=== PATIENT | female | born 1945 | race Caucasian/White ===

== ENCOUNTER 2019-11-29 12:26 | Inpatient (IN) ==
[~2019-11-29 12:26] MED LIST: ACETAMINOPHEN 325 MG TABLET PO PRN; ALUMINUM/MAGNES/SIMETH MAX STR 30 ML UDCUP PO PRN; ENOXAPARIN 30 MG/0.3 ML SYRINGE ONE; LIDOCAINE 1% 20 ML VIAL ONE; MAGNESIUM SULF RIDER 2 GM in PREMIX 1 EACH IV PRN; MAGNESIUM SULF RIDER 4 GM in PREMIX 1 EACH IV PRN; MIDAZOLAM 2 MG/2 ML VIAL ONE; MORPHINE 4 MG/1 ML VIAL IV PRN; ONDANSETRON 4 MG/2 ML VIAL IV PRN; POTASSIUM CHLORIDE 20 MEQ TABLET PO PRN; POTASSIUM CHLORIDE RIDER 10 MEQ in PREMIX 1 EACH IV PRN; ZALEPLON 5 MG CAPSULE PO PRN; diphenhydrAMINE CAP 25 MG CAPSULE PO PRN; fentaNYL 100 MCG/2 ML VIAL ONE; hydrALAZINE 20 MG/1 ML VIAL IV PRN
[2019-11-29] MEDS ORDERED: TIROFIBAN 5,000 MCG/100 ML PREMIX IV ONE (12:40)
[2019-11-29] MEDS ORDERED: TICAGRELOR 90 MG TABLET ONE (13:13)
[2019-11-29] MEDS ORDERED: TIROFIBAN 5,000 MCG/100 ML PREMIX IV SCH (13:40)
[2019-11-29 14:41] LABS: Basophils % 0.3 % (0.0-0.8); Eosinophils % 0.3 % (0.00-10.9); Hematocrit 37.1 VOL% (42.0-52.0); Hemoglobin 11.2 GM/DL (14.0-18.0); Immature Granulocytes % 0.4 %; Immature Granulocytes Absolute 0.04 #; Lymphocytes % 9.5 % (21.2-54.2); Mean Corpuscular HGB Conc 30.2 GM/DL (32-36); Mean Corpuscular Volume 94.9 FL (87-102); Mean Platelet Volume 8.4 FL (9.6-12.0); Monocytes % 1.9 % (1.7-12.7); Neutrophils % 87.6 % (38.7-73.9); Platelet Count 255 T/CUMM (130-400); Red Blood Count 3.91 MC/CUMM (3.8-5.5); White Blood Count 10.5 T/CUMM (4-12)
[2019-11-29] MEDS: SODIUM CHLORIDE 0.45% 1,000 ML IV SCH ×2 (14:51→20:16)
[2019-11-29] MEDS: ALBUTEROL 2.5 MG/3 ML NEB RESP TX SCH ×2 (15:03→19:34)
[2019-11-29] MEDS ORDERED: DEXTROSE 50% 25 GM/50 ML VIAL IV PRN (15:18)
[2019-11-29] MEDS ORDERED: GLUCAGON 1 MG VIAL IM PRN (15:18)
[2019-11-29 15:50] LABS: Alanine Aminotransferase 34 U/L (16-61); Albumin 3.1 G/DL (3.4-5.0); Alkaline Phosphatase 62 U/L (45-117); Aspartate Amino Transferase 71 U/L (0-37); Bilirubin,Total < 0.39 MG/DL (0.2-1.0); Blood Urea Nitrogen 15 MG/DL (7-18); Calcium 9.3 MG/DL (8.5-10.1); Estimated Glom Filtration Rate 63 ML/MIN; Glucose 131 MG/DL (74-106); Osmolality,Calculated 281.4 MOS/KG (273-304); Total Protein 6.5 G/DL (6.4-8.3)
[2019-11-29] MEDS: INSULIN REGULAR 100 UNIT/ML SUBCUT SCH ×2 (17:09→20:16)
[2019-11-29] MEDS: ROSUVASTATIN 20 MG TABLET PO SCH (20:19)
[2019-11-30] MEDS: ALBUTEROL 2.5 MG/3 ML NEB RESP TX SCH ×4 (01:40→19:14)
[2019-11-30 01:48] LABS: Bilirubin,Urine Negative (Negative); Blood, Urine Negative (Negative); Glucose,Urine (UA) Negative (Negative); Ketones,Urine Negative (Negative); Mucus,Urine Occasional /LPF (Occasional); Nitrite,Urine Negative (Negative); Protein,Urine Negative; RBC,Urine 1 /HPF (0-4); Squamous Epithelial Cell,Urine Occasional /HPF (0-10); Urine Appearance CLEAR (Clear); Urine Color Straw (Yellow); Urine Specific Gravity 1.021 (1.001-1.035); Urine Urobilinogen < 2.0 EU/DL (0.2-1.0); WBC,Urine 1 /HPF (0-6)
[2019-11-30] MEDS: SODIUM CHLORIDE 0.45% 1,000 ML IV SCH ×2 (02:20→10:32)
[2019-11-30 04:39] LABS: Basophils % 0.2 % (0.0-0.8); Eosinophils # 0.1 10*3/uL (0.0-0.87); Eosinophils % 0.6 % (0.00-10.9); Hematocrit 35.8 VOL% (42.0-52.0); Hemoglobin 10.8 GM/DL (14.0-18.0); Immature Granulocytes % 0.3 %; Immature Granulocytes Absolute 0.03 #; Lymphocytes # 1.5 10*3/uL (1.4-4.0); Lymphocytes % 16.2 % (21.2-54.2); Mean Corpuscular HGB Conc 30.2 GM/DL (32-36); Mean Corpuscular Volume 94.2 FL (87-102); Mean Platelet Volume 8.7 FL (9.6-12.0); Monocytes % 7.7 % (1.7-12.7); Platelet Count 254 T/CUMM (130-400); Red Cell Distribution Width 13.9 % (9.3-17.3)
[2019-11-30 05:19] LABS: Calcium 9.5 MG/DL (8.5-10.1); Osmolality,Calculated 278.4 MOS/KG (273-304)
[2019-11-30 05:21] LABS: Alanine Aminotransferase 32 U/L (16-61); Albumin 2.8 G/DL (3.4-5.0); Alkaline Phosphatase 55 U/L (45-117); Aspartate Amino Transferase 96 U/L (0-37); Bilirubin,Total < 0.39 MG/DL (0.2-1.0); Blood Urea Nitrogen 12 MG/DL (7-18); Calcium 9.6 MG/DL (8.5-10.1); Estimated Glom Filtration Rate 63 ML/MIN; Glucose 103 MG/DL (74-106); HDL Cholesterol 42 MG/DL (40-60); Osmolality,Calculated 278.4 MOS/KG (273-304); Risk Ratio 3.07; Total Protein 6.5 G/DL (6.4-8.3); Triglycerides 143 MG/DL (2-150); VLDL CHOLESTEROL 28.6 MG/DL
[2019-11-30] MEDS: INSULIN REGULAR 100 UNIT/ML SUBCUT SCH ×4 (07:38→20:50)
[2019-11-30] MEDS: PANTOPRAZOLE 40 MG TABLET PO SCH (08:00)
[2019-11-30] MEDS: ASPIRIN EC 81 MG TABLET PO SCH (08:00)
[2019-11-30] MEDS: ENOXAPARIN 40 MG/0.4 ML SYRINGE SUBCUT SCH (08:00)
[2019-11-30] MEDS: TICAGRELOR 90 MG TABLET PO SCH ×2 (08:00→20:49)
[2019-11-30] MEDS ORDERED: METOPROLOL SUCCINATE XL 25 MG TABLET PO SCH (09:00)
[2019-11-30 13:57] LABS: CKMB % 11.9 %
[2019-11-30 13:59] LABS: Troponin I 27.8 NG/ML (0.00-0.045)
[2019-11-30] MEDS: ROSUVASTATIN 20 MG TABLET PO SCH (20:49)
[2019-11-30] MEDS ORDERED: NORTRIPTYLINE 75 MG CAPSULE PO SCH (21:00)
[2019-11-30] MEDS ORDERED: FENOFIBRATE 145 MG TABLET PO SCH (21:00)
[2019-11-30] MEDS ORDERED: NORTRIPTYLINE 25 MG CAPSULE PO SCH (21:00)
[2019-12-01] MEDS: ALBUTEROL 2.5 MG/3 ML NEB RESP TX SCH ×3 (01:14→13:23)
[2019-12-01 06:05] LABS: Basophils % 0.4 % (0.0-0.8); Eosinophils # 0.1 10*3/uL (0.0-0.87); Eosinophils % 0.8 % (0.00-10.9); Hematocrit 33.4 VOL% (35.7-47.0); Hemoglobin 10.3 GM/DL (12.0-16.0); Immature Granulocytes % 0.5 %; Immature Granulocytes Absolute 0.04 #; Lymphocytes # 1.6 10*3/uL (1.4-4.0); Lymphocytes % 18.8 % (21.3-54.2); Mean Corpuscular HGB Conc 30.8 GM/DL (32-36); Mean Corpuscular Volume 91.3 FL (87-102); Mean Platelet Volume 9.1 FL (9.6-12.0); Monocytes % 6.7 % (1.7-12.7); Neutrophils % 72.8 % (38.7-73.9); Platelet Count 236 T/CUMM (130-400); Red Blood Count 3.66 MC/CUMM (3.8-5.5); White Blood Count 8.5 T/CUMM (4-12)
[2019-12-01 06:21] LABS: Calcium 9.4 MG/DL (8.5-10.1); Osmolality,Calculated 279.4 MOS/KG (273-304)
[2019-12-01 06:30] LABS: Albumin 2.7 G/DL (3.4-5.0); Bilirubin,Total 1.4 MG/DL (0.2-1.0); Calcium 9.5 MG/DL (8.5-10.1); Osmolality,Calculated 280.4 MOS/KG (273-304); Total Protein 6.5 G/DL (6.4-8.3)
[2019-12-01] MEDS ORDERED: amLODIPine 10 MG TABLET PO SCH ×2 (09:00)
[2019-12-01] MEDS ORDERED: LOSARTAN 25 MG TABLET PO SCH (09:00)
[2019-12-01] MEDS ORDERED: METOPROLOL SUCCINATE XL 50 MG TABLET PO SCH ×3 (09:00)
[2019-12-01] MEDS ORDERED: POTASSIUM CHLORIDE 20 MEQ TABLET PO SCH (09:00)
[2019-12-01] MEDS: PANTOPRAZOLE 40 MG TABLET PO SCH (09:40)
[2019-12-01] MEDS: ASPIRIN EC 81 MG TABLET PO SCH (09:41)
[2019-12-01] MEDS: TICAGRELOR 90 MG TABLET PO SCH (09:41)
[2019-12-01] MEDS: ENOXAPARIN 40 MG/0.4 ML SYRINGE SUBCUT SCH (09:41)
[2019-12-01] MEDS: INSULIN REGULAR 100 UNIT/ML SUBCUT SCH ×2 (09:42→11:13)
[2019-12-01 12:01] VITALS: BP 119/64
== END 2019-12-01 15:30 | disposition home or self-care (01) | DRG 247 ==
LOC: N.CL 12:26 → N.SDSINP 13:37 → N.ICU 13:37 → SUPCPDRO 13:37 → N.SDSINP 13:38 → N.TELEN 11-30 12:35 → N.SDSINP 11-30 12:35 → UNDODISIN 12-01 15:30 → UNDODEPSDC 12-03 13:56 → UNDODISIN 12-05 10:27 → UNDODEPSDC 12-06 08:09
PROVIDERS: ADMIT Internal Medicine Cardiovascular Disease; ATTEND Internal Medicine Cardiovascular Disease
PROC: CLCCHCL (ICD-10-PCS; 2019-11-29 12:15)

== ENCOUNTER 2019-12-24 17:11 | Inpatient (IN) ==
[2019-12-24 18:12] LABS: Basophils # 0.1 10*3/uL (0.0-0.2); Basophils % 0.5 % (0.0-0.8); Eosinophils # 0.1 10*3/uL (0.0-0.87); Eosinophils % 0.8 % (0.00-10.9); Hematocrit 29.7 VOL% (35.7-47.0); Hemoglobin 9.1 GM/DL (12.0-16.0); Immature Granulocytes % 0.6 %; Immature Granulocytes Absolute 0.09 #; Lymphocytes # 1.8 10*3/uL (1.4-4.0); Lymphocytes % 13.1 % (21.3-54.2); Mean Corpuscular HGB Conc 30.6 GM/DL (32-36); Mean Corpuscular Volume 92.8 FL (87-102); Mean Platelet Volume 9.4 FL (9.6-12.0); Monocytes % 4.4 % (1.7-12.7); Neutrophils % 80.6 % (38.7-73.9); Platelet Count 274 T/CUMM (130-400); Red Cell Distribution Width 13.8 % (9.3-17.3); White Blood Count 13.9 T/CUMM (4-12)
[2019-12-24] MEDS ORDERED: ONDANSETRON 4 MG/2 ML VIAL IV STA ×2 (18:15→19:20)
[2019-12-24] MEDS ORDERED: SODIUM CHLORIDE 0.9% 500 ML IV STA ×2 (18:17→19:50)
[2019-12-24 18:22] LABS: INR 1.2; PT Patient Result 12.8 SECS (9.8-11.9); Partial Thromboplastin Time 25.1 SECS (23.9-33.8)
[2019-12-24 18:29] LABS: Albumin 2.6 G/DL (3.4-5.0); Bilirubin,Total 0.5 MG/DL (0.2-1.0); Calcium 10.3 MG/DL (8.5-10.1); Osmolality,Calculated 288.5 MOS/KG (273-304); Total Protein 6.3 G/DL (6.4-8.3); Troponin I < 0.015 NG/ML (0.00-0.045)
[2019-12-24] MEDS ORDERED: SODIUM CHLORIDE 0.9% 1,000 ML IV STA (19:00)
[2019-12-24] MEDS ORDERED: DOPamine 800 MG/250 ML PREMIX IV PRN (22:40)
[2019-12-24] MEDS ORDERED: ONDANSETRON 4 MG/2 ML VIAL IV PRN (22:52)
[2019-12-24] MEDS ORDERED: ALBUTEROL 2.5 MG/3 ML NEB RESP TX PRN (22:52)
[2019-12-24] MEDS ORDERED: CALCIUM CARBONATE CHEW 500 MG TABLET PO PRN (22:52)
[2019-12-24] MEDS ORDERED: PANTOPRAZOLE 40 MG VIAL IV SCH (23:00)
[2019-12-24] MEDS ORDERED: ENOXAPARIN 30 MG/0.3 ML SYRINGE SUBCUT SCH (23:00)
[2019-12-24] MEDS: LACTATED RINGERS 1,000 ML IV SCH (23:32)
[2019-12-24 23:34] LABS: Apearance,Urine Slightly Hazy (Clear); Bacteria,Urine Occasional /HPF (Few); Bilirubin,Urine Negative (Negative); Blood, Urine Negative (Negative); Glucose,Urine (UA) Negative (Negative); Hyaline Casts,Urine 5 /LPF (0-3); Ketones,Urine 5 mg/dL (Negative); Mucus,Urine Occasional /LPF (Occasional); Nitrite,Urine Negative (Negative); Protein,Urine Negative; RBC,Urine 2 /HPF (0-4); Renal Epithelial Cells,Urine Occasional /HPF (<1); Squamous Epithelial Cell,Urine Occasional /HPF (0-10); Urine Color Yellow (Yellow); Urine Specific Gravity 1.014 (1.001-1.035); Urine Urobilinogen < 2.0 EU/DL (0.2-1.0); WBC,Urine 7 /HPF (0-6)
[2019-12-24] MEDS: ALBUTEROL 2.5 MG/3 ML NEB RESP TX SCH (23:39)
[2019-12-25] MEDS ORDERED: SUCCINYLCHOLINE 200 MG/10 ML VIAL ONE (00:52)
[2019-12-25] MEDS ORDERED: ETOMIDATE 20 MG/10 ML VIAL IV ONE ×2 (00:52→01:30)
[2019-12-25] MEDS: DIGOXIN 0.5 MG/2 ML AMP IV ONE (00:55)
[2019-12-25] MEDS ORDERED: LACTATED RINGERS 500 ML IV ONE (01:01)
[2019-12-25] MEDS ORDERED: CALCIUM CHLORIDE 1,000 MG/10 ML SYRINGE IV ONE ×2 (01:02)
[2019-12-25] MEDS ORDERED: NOREPINEPHRINE 4 MG/4 ML VIAL IV ONE (01:14)
[2019-12-25] MEDS ORDERED: MIDAZOLAM 10 MG/2 ML VIAL ONE (01:17)
[2019-12-25] MEDS: NOREPINEPHRINE 8 MG in SODIUM CHLORIDE 0.9% 242 ML IV PRN ×4 (01:19→13:17)
[2019-12-25] MEDS ORDERED: SUCCINYLCHOLINE 200 MG/10 ML VIAL IV ONE (01:30)
[2019-12-25] MEDS ORDERED: MIDAZOLAM 2 MG/2 ML VIAL IV ONE ×2 (01:31→03:32)
[2019-12-25] MEDS: MIDAZOLAM 100 MG in SODIUM CHLORIDE 0.9% 80 ML IV PRN (01:36)
[2019-12-25 01:46] LABS: ABG Base Excess -9.2 MMOL/L (-2.5-2.5); ABG HCO3 16.7 MMOL/L (20-26); ABG PCO2 51.9 MM HG (35-48); ABG PO2 52.6 MM HG (80-95); ABG TCO2 18.6 MMOL/L (23-27); Allen Test Positive; Pt O2 Delivery Device Ventilator
[2019-12-25 01:49] LABS: ABG PH 7.169 (7.35-7.45)
[2019-12-25 02:29] LABS: ABG Base Excess -9.9 MMOL/L (-2.5-2.5); ABG HCO3 16.4 MMOL/L (20-26); ABG Oxygen Saturation 99.7 % (95-100); ABG PCO2 43.1 MM HG (35-48); ABG PH 7.211 (7.35-7.45); ABG TCO2 16.8 MMOL/L (23-27)
[2019-12-25] MEDS: ALBUTEROL 2.5 MG/3 ML NEB RESP TX SCH ×3 (02:58→11:11)
[2019-12-25] MEDS: fentaNYL INJ 1,250 MCG in SODIUM CHLORIDE 0.9% 225 ML IV PRN (03:50)
[2019-12-25 03:59] LABS: Apearance,Urine Slightly Hazy (Clear); Bacteria,Urine Occasional /HPF (Few); Bilirubin,Urine Negative (Negative); Blood, Urine Negative (Negative); Glucose,Urine (UA) Negative (Negative); Hyaline Casts,Urine 5 /LPF (0-3); Ketones,Urine 5 mg/dL (Negative); Mucus,Urine Occasional /LPF (Occasional); Nitrite,Urine Negative (Negative); Protein,Urine Negative; RBC,Urine 1 /HPF (0-4); Squamous Epithelial Cell,Urine Occasional /HPF (0-10); Urine Color Yellow (Yellow); Urine Specific Gravity 1.014 (1.001-1.035); Urine Urobilinogen < 2.0 EU/DL (0.2-1.0); WBC,Urine 3 /HPF (0-6)
[2019-12-25 03:59] LABS: Basophils % 0.2 % (0.0-0.8); Eosinophils % 0.1 % (0.00-10.9); Hematocrit 21.1 VOL% (35.7-47.0); Immature Granulocytes % 0.8 %; Immature Granulocytes Absolute 0.12 #; Lymphocytes # 1.4 10*3/uL (1.4-4.0); Lymphocytes % 9.6 % (21.3-54.2); Mean Corpuscular HGB Conc 29.4 GM/DL (32-36); Mean Corpuscular Volume 97.7 FL (87-102); Mean Platelet Volume 9.9 FL (9.6-12.0); Monocytes % 3.3 % (1.7-12.7); Platelet Count 264 T/CUMM (130-400); Red Blood Count 2.16 MC/CUMM (3.8-5.5); Red Cell Distribution Width 13.7 % (9.3-17.3); White Blood Count 14.4 T/CUMM (4-12)
[2019-12-25 04:04] LABS: Hemoglobin 6.2 GM/DL (12.0-16.0)
[2019-12-25 04:30] LABS: Albumin 2.2 G/DL (3.4-5.0); Bilirubin,Total 0.9 MG/DL (0.2-1.0); Calcium 10.3 MG/DL (8.5-10.1); Osmolality,Calculated 302.4 MOS/KG (273-304); Total Protein 5.1 G/DL (6.4-8.3); Troponin I 0.034 NG/ML (0.00-0.045)
[2019-12-25] MEDS: LACTATED RINGERS 1,000 ML IV SCH ×5 (06:34→20:08)
[2019-12-25] MEDS ORDERED: GLUCAGON 1 MG VIAL IM PRN (07:35)
[2019-12-25] MEDS ORDERED: DEXTROSE 50% 25 GM/50 ML VIAL IV PRN (07:35)
[2019-12-25] MEDS ORDERED: MAGNESIUM SULF RIDER 4 GM in PREMIX 1 EACH IV ONE (07:36)
[2019-12-25] MEDS: ASPIRIN CHEW 81 MG TABLET PO SCH (10:15)
[2019-12-25] MEDS: PANTOPRAZOLE 40 MG VIAL IV SCH ×2 (10:19→20:35)
[2019-12-25] MEDS: INSULIN LISPRO 100 UNIT/ML SUBCUT SCH ×2 (12:27→17:35)
[2019-12-25 16:45] LABS: Hematocrit 27.9 VOL% (35.7-47.0); Hemoglobin 8.8 GM/DL (12.0-16.0)
[2019-12-25] MEDS: ROSUVASTATIN 20 MG TABLET PO SCH (20:35)
[2019-12-26] MEDS: INSULIN LISPRO 100 UNIT/ML SUBCUT SCH ×5 (00:21→17:14)
[2019-12-26] MEDS: LACTATED RINGERS 1,000 ML IV SCH ×6 (01:58→22:10)
[2019-12-26] MEDS: MIDAZOLAM 100 MG in SODIUM CHLORIDE 0.9% 80 ML IV PRN (02:43)
[2019-12-26 03:01] LABS: ABG Base Excess -2.1 MMOL/L (-2.5-2.5); ABG HCO3 22.6 MMOL/L (20-26); ABG Oxygen Saturation 97.5 % (95-100); ABG PH 7.391 (7.35-7.45); ABG PO2 91.3 MM HG (80-95); ABG TCO2 21.1 MMOL/L (23-27); Allen Test Positive; Pt O2 Delivery Device Ventilator
[2019-12-26] MEDS: NOREPINEPHRINE 8 MG in SODIUM CHLORIDE 0.9% 242 ML IV PRN (03:16)
[2019-12-26 05:00] LABS: Basophils % 0.1 % (0.0-0.8); Hematocrit 22.9 VOL% (35.7-47.0); Hemoglobin 7.2 GM/DL (12.0-16.0); Immature Granulocytes % 0.5 %; Immature Granulocytes Absolute 0.09 #; Lymphocytes # 1.3 10*3/uL (1.4-4.0); Lymphocytes % 7.4 % (21.3-54.2); Mean Corpuscular HGB Conc 31.4 GM/DL (32-36); Mean Corpuscular Volume 89.8 FL (87-102); Mean Platelet Volume 9.5 FL (9.6-12.0); Monocytes % 3.7 % (1.7-12.7); Neutrophils % 88.3 % (38.7-73.9); Platelet Count 173 T/CUMM (130-400); Red Blood Count 2.55 MC/CUMM (3.8-5.5); Red Cell Distribution Width 14.8 % (9.3-17.3)
[2019-12-26 05:11] LABS: Alanine Aminotransferase 102 U/L (13-56); Albumin 1.8 G/DL (3.4-5.0); Alkaline Phosphatase 41 U/L (45-117); Aspartate Amino Transferase 127 U/L (0-37); Bilirubin,Total < 0.39 MG/DL (0.2-1.0); Blood Urea Nitrogen 63 MG/DL (7-18); Estimated Glom Filtration Rate 42 ML/MIN; Glucose 158 MG/DL (74-106); Osmolality,Calculated 312.4 MOS/KG (273-304); Total Protein 4.5 G/DL (6.4-8.3)
[2019-12-26] MEDS ORDERED: SODIUM CHLORIDE 0.9% 1,000 ML IV PRN (07:59)
[2019-12-26] MEDS ORDERED: LACTATED RINGERS 1,000 ML IV SCH (08:00)
[2019-12-26 08:37] LABS: Hematocrit 23.2 VOL% (35.7-47.0); Hemoglobin 7.3 GM/DL (12.0-16.0)
[2019-12-26] MEDS: fentaNYL INJ 1,250 MCG in SODIUM CHLORIDE 0.9% 225 ML IV PRN (08:40)
[2019-12-26] MEDS: PANTOPRAZOLE 40 MG VIAL IV SCH ×2 (10:16→20:37)
[2019-12-26] MEDS: ASPIRIN CHEW 81 MG TABLET PO SCH (11:25)
[2019-12-26 13:28] LABS: Hematocrit 24.6 VOL% (35.7-47.0); Hemoglobin 7.8 GM/DL (12.0-16.0)
[2019-12-26 16:58] LABS: Hematocrit 22.7 VOL% (35.7-47.0); Hemoglobin 7.4 GM/DL (12.0-16.0)
[2019-12-26] MEDS: ROSUVASTATIN 20 MG TABLET PO SCH (20:35)
[2019-12-26] MEDS ORDERED: diphenhydrAMINE 50 MG/1 ML VIAL IV ONE (21:36)
[2019-12-26] MEDS ORDERED: methylPREDNISolone SOD SUC 125 MG/2 ML VIAL IV ONE (21:36)
[2019-12-26] MEDS ORDERED: FAMOTIDINE 20 MG/2 ML VIAL IV ONE (21:37)
[2019-12-26 21:57] LABS: Apearance,Urine CLEAR (Clear); Bilirubin,Urine Negative (Negative); Blood, Urine Small mg/dL (Negative); Glucose,Urine (UA) Negative (Negative); Hyaline Casts,Urine 1 /LPF (0-3); Ketones,Urine Negative (Negative); Mucus,Urine Occasional /LPF (Occasional); Nitrite,Urine Negative (Negative); Protein,Urine Negative; RBC,Urine 1 /HPF (0-4); Squamous Epithelial Cell,Urine Occasional /HPF (0-10); Urine Color Yellow (Yellow); Urine Specific Gravity 1.016 (1.001-1.035); Urine Urobilinogen < 2.0 EU/DL (0.2-1.0); WBC,Urine 4 /HPF (0-6)
[2019-12-27 00:07] LABS: Hematocrit 23.7 VOL% (35.7-47.0); Hemoglobin 7.6 GM/DL (12.0-16.0)
[2019-12-27] MEDS: INSULIN LISPRO 100 UNIT/ML SUBCUT SCH ×4 (00:24→17:37)
[2019-12-27] MEDS: MIDAZOLAM 100 MG in SODIUM CHLORIDE 0.9% 80 ML IV PRN (00:25)
[2019-12-27] MEDS: LACTATED RINGERS 1,000 ML IV SCH (02:57)
[2019-12-27 03:23] LABS: ABG Base Excess 0.2 MMOL/L (-2.5-2.5); ABG HCO3 24.6 MMOL/L (20-26); ABG PCO2 35.9 MM HG (35-48); ABG PH 7.436 (7.35-7.45); ABG PO2 83.7 MM HG (80-95); ABG TCO2 22.4 MMOL/L (23-27)
[2019-12-27 03:59] LABS: Basophils % 0.1 % (0.0-0.8); Hematocrit 26.1 VOL% (35.7-47.0); Hemoglobin 8.4 GM/DL (12.0-16.0); Immature Granulocytes % 1.4 %; Immature Granulocytes Absolute 0.15 #; Lymphocytes # 0.8 10*3/uL (1.4-4.0); Lymphocytes % 7.6 % (21.3-54.2); Mean Corpuscular HGB Conc 32.2 GM/DL (32-36); Mean Corpuscular Volume 90.3 FL (87-102); Mean Platelet Volume 9.4 FL (9.6-12.0); Monocytes % 1.4 % (1.7-12.7); NRBC # 0.02 10*3/uL; Neutrophils % 89.5 % (38.7-73.9); Platelet Count 122 T/CUMM (130-400); Red Blood Count 2.89 MC/CUMM (3.8-5.5); Red Cell Distribution Width 15.2 % (9.3-17.3); White Blood Count 10.4 T/CUMM (4-12)
[2019-12-27 04:20] LABS: Calcium 9.2 MG/DL (8.5-10.1)
[2019-12-27] MEDS ORDERED: LACTATED RINGERS 1,000 ML IV SCH (08:00)
[2019-12-27] MEDS: PANTOPRAZOLE 40 MG VIAL IV SCH ×2 (08:10→21:12)
[2019-12-27] MEDS: SODIUM CHLORIDE 0.45% 1,000 ML IV SCH ×2 (08:10→17:37)
[2019-12-27] MEDS: ASPIRIN CHEW 81 MG TABLET PO SCH (08:10)
[2019-12-27] MEDS ORDERED: propofoL 200 MG/20 ML VIAL IV ONE ×2 (09:00→13:14)
[2019-12-27] MEDS: fentaNYL INJ 1,250 MCG in SODIUM CHLORIDE 0.9% 225 ML IV PRN (11:30)
[2019-12-27] MEDS: LEVOFLOXACIN INJ 500 MG in PREMIX 1 EACH IV SCH (18:02)
[2019-12-27] MEDS: ROSUVASTATIN 20 MG TABLET PO SCH (21:11)
[2019-12-28] MEDS: INSULIN LISPRO 100 UNIT/ML SUBCUT SCH ×5 (02:45→23:55)
[2019-12-28] MEDS: SODIUM CHLORIDE 0.45% 1,000 ML IV SCH ×5 (03:30→23:55)
[2019-12-28 04:38] LABS: ABG Base Excess -1.9 MMOL/L (-2.5-2.5); ABG HCO3 21.9 MMOL/L (20-26); ABG Oxygen Saturation 96.1 % (95-100); ABG PCO2 33.4 MM HG (35-48); ABG PH 7.435 (7.35-7.45); ABG PO2 89.6 MM HG (80-95); ABG TCO2 22.9 MMOL/L (23-27); Allen Test Positive; Pt O2 Delivery Device Ventilator
[2019-12-28 04:58] LABS: Hematocrit 25.7 VOL% (35.7-47.0); Hemoglobin 8.2 GM/DL (12.0-16.0); Immature Granulocytes % 0.5 %; Immature Granulocytes Absolute 0.04 #; Lymphocytes # 1.1 10*3/uL (1.4-4.0); Lymphocytes % 12.9 % (21.3-54.2); Mean Corpuscular HGB Conc 31.9 GM/DL (32-36); Mean Corpuscular Volume 91.5 FL (87-102); Mean Platelet Volume 9.3 FL (9.6-12.0); Monocytes % 6.6 % (1.7-12.7); NRBC # 0.02 10*3/uL; Platelet Count 127 T/CUMM (130-400); Red Blood Count 2.81 MC/CUMM (3.8-5.5); Red Cell Distribution Width 15.2 % (9.3-17.3); White Blood Count 8.8 T/CUMM (4-12)
[2019-12-28 05:14] LABS: Calcium 9.1 MG/DL (8.5-10.1); Osmolality,Calculated 304.1 MOS/KG (273-304)
[2019-12-28] MEDS: MIDAZOLAM 100 MG in SODIUM CHLORIDE 0.9% 80 ML IV PRN (06:37)
[2019-12-28] MEDS: ASPIRIN CHEW 81 MG TABLET PO SCH (09:16)
[2019-12-28] MEDS: PANTOPRAZOLE 40 MG VIAL IV SCH ×2 (09:25→20:23)
[2019-12-28] MEDS: fentaNYL INJ 1,250 MCG in SODIUM CHLORIDE 0.9% 225 ML IV PRN (12:40)
[2019-12-28] MEDS: LEVOFLOXACIN INJ 500 MG in PREMIX 1 EACH IV SCH (18:31)
[2019-12-28] MEDS: ROSUVASTATIN 20 MG TABLET PO SCH (20:23)
[2019-12-29] MEDS: fentaNYL INJ 1,250 MCG in SODIUM CHLORIDE 0.9% 225 ML IV PRN ×3 (01:53→18:54)
[2019-12-29 03:45] LABS: Basophils % 0.2 % (0.0-0.8); Eosinophils # 0.2 10*3/uL (0.0-0.87); Eosinophils % 2.7 % (0.00-10.9); Hematocrit 24.9 VOL% (35.7-47.0); Hemoglobin 7.8 GM/DL (12.0-16.0); Immature Granulocytes % 0.5 %; Immature Granulocytes Absolute 0.03 #; Lymphocytes # 1.4 10*3/uL (1.4-4.0); Lymphocytes % 21.8 % (21.3-54.2); Mean Corpuscular HGB Conc 31.3 GM/DL (32-36); Mean Corpuscular Volume 92.6 FL (87-102); Mean Platelet Volume 8.8 FL (9.6-12.0); Monocytes % 9.1 % (1.7-12.7); Neutrophils % 65.7 % (38.7-73.9); Platelet Count 114 T/CUMM (130-400); Red Blood Count 2.69 MC/CUMM (3.8-5.5); Red Cell Distribution Width 15.3 % (9.3-17.3); White Blood Count 6.2 T/CUMM (4-12)
[2019-12-29 03:58] LABS: Calcium 8.8 MG/DL (8.5-10.1); Osmolality,Calculated 295.4 MOS/KG (273-304)
[2019-12-29 04:55] LABS: ABG Base Excess -3.3 MMOL/L (-2.5-2.5); ABG HCO3 21.7 MMOL/L (20-26); ABG Oxygen Saturation 99.3 % (95-100); ABG PCO2 36.3 MM HG (35-48); ABG PH 7.379 (7.35-7.45); ABG TCO2 20.1 MMOL/L (23-27); Allen Test Positive; Pt O2 Delivery Device Ventilator
[2019-12-29] MEDS: INSULIN LISPRO 100 UNIT/ML SUBCUT SCH ×3 (06:36→18:10)
[2019-12-29] MEDS ORDERED: FUROSEMIDE 40 MG/4 ML VIAL IV ONE (08:07)
[2019-12-29] MEDS: ASPIRIN CHEW 81 MG TABLET PO SCH (09:22)
[2019-12-29] MEDS: PANTOPRAZOLE 40 MG VIAL IV SCH ×2 (09:23→20:45)
[2019-12-29] MEDS: SODIUM CHLORIDE 0.45% 1,000 ML IV SCH ×2 (09:32→20:21)
[2019-12-29] MEDS: METOPROLOL TARTRATE 5 MG/5 ML VIAL IV SCH ×3 (10:21→10:43)
[2019-12-29] MEDS ORDERED: METOPROLOL SUCCINATE XL 100 MG TABLET PO SCH (12:00)
[2019-12-29] MEDS ORDERED: METOPROLOL TARTRATE 50 MG TABLET PO ONE (12:36)
[2019-12-29] MEDS: LOSARTAN 25 MG TABLET PO SCH (13:15)
[2019-12-29] MEDS: amLODIPine 10 MG TABLET PO SCH (13:15)
[2019-12-29] MEDS: MIDAZOLAM 100 MG in SODIUM CHLORIDE 0.9% 80 ML IV PRN (16:00)
[2019-12-29] MEDS: FUROSEMIDE 20 MG/2 ML VIAL IV SCH (16:58)
[2019-12-29] MEDS: LEVOFLOXACIN INJ 500 MG in PREMIX 1 EACH IV SCH (17:01)
[2019-12-29] MEDS: ROSUVASTATIN 20 MG TABLET PO SCH (20:45)
[2019-12-29] MEDS: METOPROLOL TARTRATE 50 MG TABLET NG SCH (20:45)
[2019-12-30] MEDS: INSULIN LISPRO 100 UNIT/ML SUBCUT SCH ×5 (00:07→23:56)
[2019-12-30] MEDS: fentaNYL INJ 1,250 MCG in SODIUM CHLORIDE 0.9% 225 ML IV PRN ×2 (03:25→10:46)
[2019-12-30 04:06] LABS: Basophils % 0.3 % (0.0-0.8); Eosinophils # 0.4 10*3/uL (0.0-0.87); Eosinophils % 5.8 % (0.00-10.9); Hematocrit 25.5 VOL% (35.7-47.0); Hemoglobin 7.9 GM/DL (12.0-16.0); Immature Granulocytes % 0.7 %; Immature Granulocytes Absolute 0.05 #; Lymphocytes # 1.5 10*3/uL (1.4-4.0); Lymphocytes % 19.7 % (21.3-54.2); Mean Corpuscular Volume 92.1 FL (87-102); Mean Platelet Volume 9.2 FL (9.6-12.0); Monocytes % 8.5 % (1.7-12.7); Platelet Count 126 T/CUMM (130-400); Red Blood Count 2.77 MC/CUMM (3.8-5.5); White Blood Count 7.4 T/CUMM (4-12)
[2019-12-30 04:27] LABS: ABG Base Excess -4.5 MMOL/L (-2.5-2.5); ABG PCO2 34.5 MM HG (35-48); ABG PH 7.381 (7.35-7.45); ABG TCO2 21.1 MMOL/L (23-27); Allen Test Positive; Pt O2 Delivery Device Ventilator
[2019-12-30 05:10] LABS: Calcium 8.6 MG/DL (8.5-10.1); Osmolality,Calculated 286.8 MOS/KG (273-304)
[2019-12-30] MEDS: SODIUM CHLORIDE 0.45% 1,000 ML IV SCH ×3 (06:20→20:38)
[2019-12-30] MEDS: PANTOPRAZOLE 40 MG VIAL IV SCH ×2 (08:15→20:39)
[2019-12-30] MEDS: METOPROLOL TARTRATE 50 MG TABLET NG SCH ×2 (08:15→20:39)
[2019-12-30] MEDS: amLODIPine 10 MG TABLET PO SCH (08:15)
[2019-12-30] MEDS: ASPIRIN CHEW 81 MG TABLET PO SCH (08:15)
[2019-12-30] MEDS: LOSARTAN 25 MG TABLET PO SCH (08:15)
[2019-12-30] MEDS: FUROSEMIDE 20 MG/2 ML VIAL IV SCH ×2 (08:21→17:25)
[2019-12-30] MEDS: POTASSIUM CHLORIDE RIDER 20 MEQ in PREMIX 1 EACH IV SCH ×2 (11:34→14:05)
[2019-12-30] MEDS: LEVOFLOXACIN INJ 500 MG in PREMIX 1 EACH IV SCH (17:25)
[2019-12-30] MEDS: DEXMEDETOMIDINE 400 MCG in SODIUM CHLORIDE 0.9% 96 ML IV PRN (17:31)
[2019-12-30] MEDS: ROSUVASTATIN 20 MG TABLET PO SCH (20:39)
[2019-12-31] MEDS: DEXMEDETOMIDINE 400 MCG in SODIUM CHLORIDE 0.9% 96 ML IV PRN ×4 (00:45→23:01)
[2019-12-31] MEDS: fentaNYL INJ 1,250 MCG in SODIUM CHLORIDE 0.9% 225 ML IV PRN ×2 (02:16→15:00)
[2019-12-31 03:34] LABS: ABG Base Excess -1.5 MMOL/L (-2.5-2.5); ABG HCO3 23.1 MMOL/L (20-26); ABG Oxygen Saturation 99.3 % (95-100); ABG PCO2 39.9 MM HG (35-48); ABG PH 7.377 (7.35-7.45); ABG TCO2 21.5 MMOL/L (23-27); Allen Test Positive; Pt O2 Delivery Device Ventilator
[2019-12-31 04:33] LABS: Basophils % 0.1 % (0.0-0.8); Eosinophils # 0.4 10*3/uL (0.0-0.87); Eosinophils % 4.2 % (0.00-10.9); Hematocrit 24.9 VOL% (35.7-47.0); Immature Granulocytes % 0.8 %; Immature Granulocytes Absolute 0.07 #; Lymphocytes % 12.4 % (21.3-54.2); Mean Corpuscular HGB Conc 32.1 GM/DL (32-36); Mean Corpuscular Volume 89.9 FL (87-102); Neutrophils % 74.5 % (38.7-73.9); Platelet Count 153 T/CUMM (130-400); Red Blood Count 2.77 MC/CUMM (3.8-5.5); Red Cell Distribution Width 14.2 % (9.3-17.3); White Blood Count 8.3 T/CUMM (4-12)
[2019-12-31 04:48] LABS: Calcium 8.8 MG/DL (8.5-10.1); Osmolality,Calculated 285.1 MOS/KG (273-304)
[2019-12-31 04:52] LABS: Prealbumin 14.3 MG/DL (20-40)
[2019-12-31] MEDS: INSULIN LISPRO 100 UNIT/ML SUBCUT SCH ×4 (06:01→23:53)
[2019-12-31] MEDS: SODIUM CHLORIDE 0.45% 1,000 ML IV SCH (06:30)
[2019-12-31] MEDS ORDERED: MAGNESIUM SULF RIDER 2 GM in PREMIX 1 EACH IV ONE (08:10)
[2019-12-31] MEDS: ASPIRIN CHEW 81 MG TABLET PO SCH (08:11)
[2019-12-31] MEDS: MULTIVITAMIN LIQUID (CENTRUM) 60 ML BOTTLE PO SCH (08:11)
[2019-12-31] MEDS: PANTOPRAZOLE 40 MG VIAL IV SCH ×2 (08:11→20:47)
[2019-12-31] MEDS: FUROSEMIDE 20 MG/2 ML VIAL IV SCH (08:14)
[2019-12-31] MEDS: amLODIPine 10 MG TABLET PO SCH (08:24)
[2019-12-31] MEDS: METOPROLOL TARTRATE 50 MG TABLET NG SCH ×2 (08:24→20:48)
[2019-12-31] MEDS: LOSARTAN 25 MG TABLET PO SCH (08:24)
[2019-12-31] MEDS ORDERED: FUROSEMIDE 40 MG/4 ML VIAL IV ONE (08:27)
[2019-12-31] MEDS: TICAGRELOR 90 MG TABLET PO SCH ×2 (09:12→20:48)
[2019-12-31] MEDS ORDERED: ALPRAZolam 0.5 MG TABLET PO PRN (10:05)
[2019-12-31] MEDS: ALPRAZolam 0.5 MG TABLET PER TUBE PRN ×2 (13:03→20:49)
[2019-12-31] MEDS ORDERED: POTASSIUM CHLORIDE RIDER 20 MEQ in PREMIX 1 EACH IV ONE (13:30)
[2019-12-31] MEDS: LEVOFLOXACIN INJ 500 MG in PREMIX 1 EACH IV SCH (18:52)
[2019-12-31] MEDS: ROSUVASTATIN 20 MG TABLET PO SCH (20:48)
[2019-12-31] MEDS ORDERED: NOREPINEPHRINE 4 MG/4 ML VIAL IV ONE (22:31)
[2020-01-01] MEDS: fentaNYL INJ 1,250 MCG in SODIUM CHLORIDE 0.9% 225 ML IV PRN ×2 (04:48→16:01)
[2020-01-01 04:55] LABS: ABG Base Excess 1.8 MMOL/L (-2.5-2.5); ABG Oxygen Saturation 99.2 % (95-100); ABG PCO2 44.2 MM HG (35-48); ABG PH 7.393 (7.35-7.45); ABG TCO2 25.1 MMOL/L (23-27)
[2020-01-01] MEDS: DEXMEDETOMIDINE 400 MCG in SODIUM CHLORIDE 0.9% 96 ML IV PRN (05:09)
[2020-01-01 05:38] LABS: Basophils % 0.1 % (0.0-0.8); Eosinophils # 0.4 10*3/uL (0.0-0.87); Eosinophils % 4.2 % (0.00-10.9); Hematocrit 22.8 VOL% (35.7-47.0); Hemoglobin 7.2 GM/DL (12.0-16.0); Immature Granulocytes % 0.8 %; Immature Granulocytes Absolute 0.07 #; Lymphocytes # 0.8 10*3/uL (1.4-4.0); Lymphocytes % 9.3 % (21.3-54.2); Mean Corpuscular HGB Conc 31.6 GM/DL (32-36); Mean Corpuscular Volume 89.4 FL (87-102); Mean Platelet Volume 9.5 FL (9.6-12.0); Monocytes % 9.6 % (1.7-12.7); Platelet Count 193 T/CUMM (130-400); Red Blood Count 2.55 MC/CUMM (3.8-5.5); Red Cell Distribution Width 13.7 % (9.3-17.3); White Blood Count 8.6 T/CUMM (4-12)
[2020-01-01 05:50] LABS: Calcium 9.1 MG/DL (8.5-10.1); Osmolality,Calculated 284.3 MOS/KG (273-304)
[2020-01-01] MEDS: INSULIN LISPRO 100 UNIT/ML SUBCUT SCH ×3 (05:50→17:20)
[2020-01-01] MEDS: ASPIRIN CHEW 81 MG TABLET PO SCH (09:18)
[2020-01-01] MEDS: amLODIPine 10 MG TABLET PO SCH (09:18)
[2020-01-01] MEDS: ALPRAZolam 0.5 MG TABLET PER TUBE PRN (09:18)
[2020-01-01] MEDS: PANTOPRAZOLE 40 MG VIAL IV SCH ×2 (09:18→20:19)
[2020-01-01] MEDS: TICAGRELOR 90 MG TABLET PO SCH ×2 (09:18→20:19)
[2020-01-01] MEDS: METOPROLOL TARTRATE 50 MG TABLET NG SCH ×2 (09:18→20:19)
[2020-01-01] MEDS: LOSARTAN 25 MG TABLET PO SCH (09:18)
[2020-01-01] MEDS: MULTIVITAMIN LIQUID (CENTRUM) 60 ML BOTTLE PO SCH (09:58)
[2020-01-01] MEDS: MIDAZOLAM 100 MG in SODIUM CHLORIDE 0.9% 80 ML IV PRN (10:00)
[2020-01-01] MEDS ORDERED: MIDAZOLAM 100 MG in SODIUM CHLORIDE 0.9% 80 ML IV PRN (16:05)
[2020-01-01] MEDS ORDERED: fentaNYL INJ 1,250 MCG in SODIUM CHLORIDE 0.9% 225 ML IV PRN (16:06)
[2020-01-01] MEDS: ROSUVASTATIN 20 MG TABLET PO SCH (20:19)
[2020-01-02] MEDS: INSULIN LISPRO 100 UNIT/ML SUBCUT SCH ×4 (00:36→17:31)
[2020-01-02 04:41] LABS: ABG Base Excess 3.9 MMOL/L (-2.5-2.5); ABG HCO3 27.9 MMOL/L (20-26); ABG Oxygen Saturation 98.7 % (95-100); ABG PH 7.462 (7.35-7.45); ABG TCO2 25.7 MMOL/L (23-27); Allen Test Positive; Pt O2 Delivery Device Ventilator
[2020-01-02 04:51] LABS: Basophils % 0.3 % (0.0-0.8); Eosinophils # 0.6 10*3/uL (0.0-0.87); Hematocrit 22.8 VOL% (35.7-47.0); Hemoglobin 7.4 GM/DL (12.0-16.0); Immature Granulocytes % 0.5 %; Immature Granulocytes Absolute 0.04 #; Lymphocytes # 1.1 10*3/uL (1.4-4.0); Lymphocytes % 14.9 % (21.3-54.2); Mean Corpuscular HGB Conc 32.5 GM/DL (32-36); Mean Corpuscular Volume 88.7 FL (87-102); Mean Platelet Volume 9.3 FL (9.6-12.0); Monocytes % 9.6 % (1.7-12.7); Neutrophils % 66.7 % (38.7-73.9); Platelet Count 210 T/CUMM (130-400); Red Blood Count 2.57 MC/CUMM (3.8-5.5); Red Cell Distribution Width 14.1 % (9.3-17.3); White Blood Count 7.5 T/CUMM (4-12)
[2020-01-02 05:07] LABS: Calcium 9.3 MG/DL (8.5-10.1); Osmolality,Calculated 290.8 MOS/KG (273-304)
[2020-01-02] MEDS: TICAGRELOR 90 MG TABLET PO SCH (08:53)
[2020-01-02] MEDS: ASPIRIN CHEW 81 MG TABLET PO SCH (08:53)
[2020-01-02] MEDS: MULTIVITAMIN LIQUID (CENTRUM) 60 ML BOTTLE PO SCH (08:53)
[2020-01-02] MEDS: METOPROLOL TARTRATE 50 MG TABLET NG SCH ×2 (08:53→21:50)
[2020-01-02] MEDS: PANTOPRAZOLE 40 MG VIAL IV SCH ×2 (08:53→21:52)
[2020-01-02] MEDS: ALPRAZolam 0.5 MG TABLET PER TUBE PRN ×2 (08:54→16:51)
[2020-01-02] MEDS: LOSARTAN 25 MG TABLET PO SCH (10:11)
[2020-01-02] MEDS: amLODIPine 10 MG TABLET PO SCH (10:11)
[2020-01-02] MEDS ORDERED: METOPROLOL TARTRATE 50 MG TABLET NG ONE (11:47)
[2020-01-02] MEDS ORDERED: ALBUTEROL 2.5 MG/3 ML NEB RESP TX ONE (13:24)
[2020-01-02] MEDS ORDERED: ALBUTEROL 2.5 MG/3 ML NEB RESP TX PRN (13:24)
[2020-01-02] MEDS ORDERED: LEVALBUTEROL 1.25 MG/3 ML NEB RESP TX PRN (13:39)
[2020-01-02 13:40] LABS: ABG Base Excess 0.2 MMOL/L (-2.5-2.5); ABG HCO3 28.8 MMOL/L (20-26); ABG Oxygen Saturation 98.5 % (95-100); ABG PH 7.226 (7.35-7.45); ABG PO2 184.3 MM HG (80-95); Allen Test Positive
[2020-01-02] MEDS: LEVALBUTEROL 1.25 MG/3 ML NEB RESP TX SCH ×3 (14:25→23:03)
[2020-01-02] MEDS: IPRATROPIUM 500 MCG/2.5 ML NEB RESP TX SCH ×3 (14:25→23:03)
[2020-01-02] MEDS: POTASSIUM CHLORIDE RIDER 20 MEQ in PREMIX 1 EACH IV SCH ×2 (14:34→15:34)
[2020-01-02] MEDS ORDERED: ALBUTEROL/IPRATROPIUM 3 ML NEB RESP TX SCH (15:00)
[2020-01-02 21:15] LABS: ABG Base Excess 1.1 MMOL/L (-2.5-2.5); ABG HCO3 27.7 MMOL/L (20-26); ABG Oxygen Saturation 96.7 % (95-100); ABG PCO2 54.8 MM HG (35-48); ABG PH 7.322 (7.35-7.45); ABG PO2 98.9 MM HG (80-95); ABG TCO2 29.4 MMOL/L (23-27); Allen Test Positive; Pt O2 Delivery Device BIPAP
[2020-01-02] MEDS ORDERED: FUROSEMIDE 40 MG/4 ML VIAL IV ONE (21:41)
[2020-01-02] MEDS: ROSUVASTATIN 20 MG TABLET PO SCH (21:50)
[2020-01-03] MEDS: INSULIN LISPRO 100 UNIT/ML SUBCUT SCH ×4 (00:08→18:28)
[2020-01-03] MEDS: ALPRAZolam 0.5 MG TABLET PER TUBE PRN (00:08)
[2020-01-03] MEDS: IPRATROPIUM 500 MCG/2.5 ML NEB RESP TX SCH ×6 (02:59→23:55)
[2020-01-03] MEDS: LEVALBUTEROL 1.25 MG/3 ML NEB RESP TX SCH ×6 (02:59→23:55)
[2020-01-03 04:16] LABS: Basophils % 0.2 % (0.0-0.8); Eosinophils # 0.1 10*3/uL (0.0-0.87); Hematocrit 30.4 VOL% (35.7-47.0); Immature Granulocytes % 0.4 %; Immature Granulocytes Absolute 0.05 #; Lymphocytes % 7.7 % (21.3-54.2); Mean Corpuscular HGB Conc 31.9 GM/DL (32-36); Mean Corpuscular Volume 87.4 FL (87-102); Mean Platelet Volume 9.1 FL (9.6-12.0); Monocytes % 8.5 % (1.7-12.7); Neutrophils % 82.2 % (38.7-73.9); Platelet Count 320 T/CUMM (130-400); Red Blood Count 3.48 MC/CUMM (3.8-5.5); Red Cell Distribution Width 13.9 % (9.3-17.3); White Blood Count 12.4 T/CUMM (4-12)
[2020-01-03 04:18] LABS: Hemoglobin 9.7 GM/DL (12.0-16.0)
[2020-01-03 04:33] LABS: Calcium 10.6 MG/DL (8.5-10.1); Osmolality,Calculated 291.7 MOS/KG (273-304)
[2020-01-03 04:46] LABS: Allen Test Positive; Pt O2 Delivery Device BIPAP
[2020-01-03 04:51] LABS: ABG Base Excess 6.9 MMOL/L (-2.5-2.5); ABG HCO3 30.7 MMOL/L (20-26); ABG PCO2 43.8 MM HG (35-48); ABG PH 7.464 (7.35-7.45); ABG PO2 91.7 MM HG (80-95); ABG TCO2 28.5 MMOL/L (23-27)
[2020-01-03] MEDS: cloNIDine 0.1 MG/24 HR PATCH TRANSDERM SCH ×2 (07:01→09:01)
[2020-01-03] MEDS ORDERED: PRAMIPEXOLE 0.25 MG TABLET PO ONE (08:11)
[2020-01-03] MEDS: ASPIRIN CHEW 81 MG TABLET PO SCH (08:55)
[2020-01-03] MEDS: METOPROLOL TARTRATE 50 MG TABLET NG SCH ×2 (08:55→20:11)
[2020-01-03] MEDS: CLOPIDOGREL 75 MG TABLET PO SCH (08:56)
[2020-01-03] MEDS: LOSARTAN 25 MG TABLET PO SCH (09:00)
[2020-01-03] MEDS: amLODIPine 10 MG TABLET PO SCH (09:00)
[2020-01-03] MEDS ORDERED: cloNIDine 0.1 MG/24 HR PATCH TRANSDERM SCH (09:00)
[2020-01-03] MEDS: PANTOPRAZOLE 40 MG VIAL IV SCH ×2 (09:01→20:11)
[2020-01-03] MEDS: MULTIVITAMIN LIQUID (CENTRUM) 60 ML BOTTLE PO SCH (09:02)
[2020-01-03 09:15] LABS: Calcium 10.8 MG/DL (8.5-10.1)
[2020-01-03] MEDS ORDERED: POTASSIUM CHLORIDE RIDER 20 MEQ in PREMIX 1 EACH IV ONE (11:01)
[2020-01-03] MEDS ORDERED: HALOPERIDOL 5 MG/ML AMP IM PRN (11:39)
[2020-01-03] MEDS: PIPERACILLIN/TAZOBACTAM 3,375 MG in SODIUM CHLORIDE 0.9% 100 ML IV SCH ×2 (12:55→20:11)
[2020-01-03 13:53] LABS: Parathyroid Hormone Intact 93.4 PG/ML (18.4-80.1)
[2020-01-03] MEDS ORDERED: LORazepam 2 MG/1 ML VIAL IV ONE (15:22)
[2020-01-03] MEDS ORDERED: LORazepam 2 MG/1 ML VIAL ONE (15:33)
[2020-01-03] MEDS: NORTRIPTYLINE 25 MG CAPSULE PO SCH (20:10)
[2020-01-03] MEDS: ROSUVASTATIN 20 MG TABLET PO SCH (20:11)
[2020-01-03] MEDS: LORazepam 2 MG/1 ML VIAL IV PRN (20:15)
[2020-01-04] MEDS: INSULIN LISPRO 100 UNIT/ML SUBCUT SCH ×4 (01:09→18:17)
[2020-01-04] MEDS: LORazepam 2 MG/1 ML VIAL IV PRN ×2 (02:47→09:03)
[2020-01-04] MEDS: IPRATROPIUM 500 MCG/2.5 ML NEB RESP TX SCH ×6 (03:45→23:10)
[2020-01-04] MEDS: LEVALBUTEROL 1.25 MG/3 ML NEB RESP TX SCH ×6 (03:45→23:10)
[2020-01-04] MEDS: PIPERACILLIN/TAZOBACTAM 3,375 MG in SODIUM CHLORIDE 0.9% 100 ML IV SCH ×3 (04:15→20:47)
[2020-01-04 04:23] LABS: Basophils % 0.3 % (0.0-0.8); Eosinophils # 0.1 10*3/uL (0.0-0.87); Eosinophils % 0.6 % (0.00-10.9); Hematocrit 29.3 VOL% (35.7-47.0); Hemoglobin 9.2 GM/DL (12.0-16.0); Immature Granulocytes % 0.4 %; Immature Granulocytes Absolute 0.05 #; Lymphocytes # 1.2 10*3/uL (1.4-4.0); Lymphocytes % 10.6 % (21.3-54.2); Mean Corpuscular HGB Conc 31.4 GM/DL (32-36); Mean Platelet Volume 8.8 FL (9.6-12.0); Monocytes % 8.9 % (1.7-12.7); Neutrophils % 79.2 % (38.7-73.9); Platelet Count 357 T/CUMM (130-400); Red Blood Count 3.33 MC/CUMM (3.8-5.5); Red Cell Distribution Width 13.8 % (9.3-17.3); White Blood Count 11.4 T/CUMM (4-12)
[2020-01-04 04:39] LABS: Albumin 1.9 G/DL (3.4-5.0); Bilirubin,Direct 0.19 MG/DL (0.0-0.20); Bilirubin,Indirect 0.6 MG/DL (0.0-1.0); Bilirubin,Total 0.8 MG/DL (0.2-1.0); Calcium 10.5 MG/DL (8.5-10.1); Osmolality,Calculated 303.3 MOS/KG (273-304); Total Protein 6.2 G/DL (6.4-8.3)
[2020-01-04] MEDS ORDERED: ADENOSINE 6 MG/2 ML VIAL ONE ×3 (08:18→08:28)
[2020-01-04] MEDS ORDERED: ADENOSINE 6 MG/2 ML VIAL IV ONE ×2 (08:23→08:26)
[2020-01-04] MEDS ORDERED: LORazepam 2 MG/1 ML VIAL ONE (08:46)
[2020-01-04] MEDS: METOPROLOL TARTRATE 50 MG TABLET NG SCH ×2 (09:02→20:47)
[2020-01-04] MEDS: amLODIPine 10 MG TABLET PO SCH (09:02)
[2020-01-04] MEDS: ASPIRIN CHEW 81 MG TABLET PO SCH (09:02)
[2020-01-04] MEDS: LOSARTAN 25 MG TABLET PO SCH (09:02)
[2020-01-04] MEDS: CLOPIDOGREL 75 MG TABLET PO SCH (09:02)
[2020-01-04] MEDS: PANTOPRAZOLE 40 MG VIAL IV SCH ×2 (09:03→20:47)
[2020-01-04] MEDS: MULTIVITAMIN LIQUID (CENTRUM) 60 ML BOTTLE PO SCH (09:04)
[2020-01-04 09:40] LABS: Allen Test Positive; Pt O2 Delivery Device Simple Mask
[2020-01-04 09:41] LABS: ABG Base Excess 6.5 MMOL/L (-2.5-2.5); ABG HCO3 30.3 MMOL/L (20-26); ABG Oxygen Saturation 94.1 % (95-100); ABG PCO2 43.6 MM HG (35-48); ABG PO2 69.4 MM HG (80-95); ABG TCO2 28.4 MMOL/L (23-27)
[2020-01-04] MEDS ORDERED: POTASSIUM CHLORIDE 20 MEQ TABLET PO ONE (10:16)
[2020-01-04 10:38] LABS: Osmolality,Calculated 306.1 MOS/KG (273-304)
[2020-01-04] MEDS: QUEtiapine 25 MG TABLET PO SCH ×2 (13:29→20:48)
[2020-01-04] MEDS: ROSUVASTATIN 20 MG TABLET PO SCH (20:47)
[2020-01-04] MEDS: NORTRIPTYLINE 25 MG CAPSULE PO SCH (20:47)
[2020-01-05] MEDS: INSULIN LISPRO 100 UNIT/ML SUBCUT SCH ×5 (00:33→23:45)
[2020-01-05] MEDS: LEVALBUTEROL 1.25 MG/3 ML NEB RESP TX SCH ×5 (02:24→19:46)
[2020-01-05] MEDS: IPRATROPIUM 500 MCG/2.5 ML NEB RESP TX SCH ×5 (02:24→19:46)
[2020-01-05 04:15] LABS: Basophils # 0.1 10*3/uL (0.0-0.2); Basophils % 0.4 % (0.0-0.8); Eosinophils # 0.4 10*3/uL (0.0-0.87); Eosinophils % 3.1 % (0.00-10.9); Hematocrit 26.4 VOL% (35.7-47.0); Hemoglobin 8.2 GM/DL (12.0-16.0); Immature Granulocytes % 0.6 %; Immature Granulocytes Absolute 0.07 #; Lymphocytes # 1.3 10*3/uL (1.4-4.0); Lymphocytes % 10.5 % (21.3-54.2); Mean Corpuscular HGB Conc 31.1 GM/DL (32-36); Mean Corpuscular Volume 90.1 FL (87-102); Mean Platelet Volume 8.9 FL (9.6-12.0); Monocytes % 7.8 % (1.7-12.7); Neutrophils % 77.6 % (38.7-73.9); Platelet Count 339 T/CUMM (130-400); Red Blood Count 2.93 MC/CUMM (3.8-5.5); Red Cell Distribution Width 14.4 % (9.3-17.3)
[2020-01-05 04:32] LABS: Albumin 1.7 G/DL (3.4-5.0); Bilirubin,Direct 0.14 MG/DL (0.0-0.20); Bilirubin,Indirect 0.3 MG/DL (0.0-1.0); Bilirubin,Total 0.4 MG/DL (0.2-1.0); Calcium 9.9 MG/DL (8.5-10.1); Osmolality,Calculated 302.1 MOS/KG (273-304); Total Protein 5.7 G/DL (6.4-8.3)
[2020-01-05] MEDS: PIPERACILLIN/TAZOBACTAM 3,375 MG in SODIUM CHLORIDE 0.9% 100 ML IV SCH ×3 (05:50→20:56)
[2020-01-05] MEDS: PANTOPRAZOLE 40 MG VIAL IV SCH ×2 (09:06→20:56)
[2020-01-05] MEDS: ASPIRIN CHEW 81 MG TABLET PO SCH (09:06)
[2020-01-05] MEDS: CLOPIDOGREL 75 MG TABLET PO SCH (09:06)
[2020-01-05] MEDS: QUEtiapine 25 MG TABLET PO SCH ×2 (09:06→20:57)
[2020-01-05] MEDS: amLODIPine 10 MG TABLET PO SCH (09:06)
[2020-01-05] MEDS: METOPROLOL TARTRATE 50 MG TABLET NG SCH ×2 (09:07→20:56)
[2020-01-05] MEDS: LOSARTAN 25 MG TABLET PO SCH (09:08)
[2020-01-05] MEDS: POTASSIUM CHLORIDE RIDER 20 MEQ in PREMIX 1 EACH IV PRN (09:11)
[2020-01-05] MEDS ORDERED: POTASSIUM CHLORIDE 20 MEQ TABLET PO ONE (10:33)
[2020-01-05] MEDS: MULTIVITAMIN LIQUID (CENTRUM) 60 ML BOTTLE PO SCH (12:02)
[2020-01-05] MEDS: POTASSIUM CHLORIDE RIDER 10 MEQ in PREMIX 1 EACH IV PRN (12:29)
[2020-01-05] MEDS: NORTRIPTYLINE 25 MG CAPSULE PO SCH (20:56)
[2020-01-05] MEDS: ROSUVASTATIN 20 MG TABLET PO SCH (20:56)
[2020-01-06] MEDS: IPRATROPIUM 500 MCG/2.5 ML NEB RESP TX SCH ×7 (00:52→23:33)
[2020-01-06] MEDS: LEVALBUTEROL 1.25 MG/3 ML NEB RESP TX SCH ×7 (00:52→23:33)
[2020-01-06 04:38] LABS: Calcium 9.6 MG/DL (8.5-10.1); Osmolality,Calculated 298.3 MOS/KG (273-304)
[2020-01-06] MEDS: INSULIN LISPRO 100 UNIT/ML SUBCUT SCH ×4 (05:33→23:46)
[2020-01-06] MEDS: PIPERACILLIN/TAZOBACTAM 3,375 MG in SODIUM CHLORIDE 0.9% 100 ML IV SCH ×3 (05:33→21:02)
[2020-01-06] MEDS: PANTOPRAZOLE 40 MG VIAL IV SCH ×2 (08:16→21:38)
[2020-01-06] MEDS: QUEtiapine 25 MG TABLET PO SCH (08:16)
[2020-01-06] MEDS: amLODIPine 10 MG TABLET PO SCH (08:16)
[2020-01-06] MEDS: METOPROLOL TARTRATE 50 MG TABLET NG SCH ×2 (08:16→21:03)
[2020-01-06] MEDS: CLOPIDOGREL 75 MG TABLET PO SCH (08:16)
[2020-01-06] MEDS: ASPIRIN CHEW 81 MG TABLET PO SCH (08:16)
[2020-01-06] MEDS: LOSARTAN 25 MG TABLET PO SCH (08:17)
[2020-01-06] MEDS: MULTIVITAMIN LIQUID (CENTRUM) 60 ML BOTTLE PO SCH (08:17)
[2020-01-06] MEDS: POTASSIUM CHLORIDE RIDER 20 MEQ in PREMIX 1 EACH IV PRN (10:01)
[2020-01-06] MEDS: POTASSIUM CHLORIDE RIDER 10 MEQ in PREMIX 1 EACH IV PRN (11:59)
[2020-01-06] MEDS ORDERED: FUROSEMIDE 40 MG/4 ML VIAL IV ONE (18:29)
[2020-01-06] MEDS ORDERED: FUROSEMIDE 40 MG/4 ML VIAL ONE (18:33)
[2020-01-06] MEDS ORDERED: ETOMIDATE 20 MG/10 ML VIAL IV ONE ×3 (20:14→20:35)
[2020-01-06] MEDS ORDERED: SUCCINYLCHOLINE 200 MG/10 ML VIAL IV ONE (20:15)
[2020-01-06] MEDS ORDERED: SUCCINYLCHOLINE 200 MG/10 ML VIAL ONE (20:15)
[2020-01-06] MEDS ORDERED: NOREPINEPHRINE 8 MG in SODIUM CHLORIDE 0.9% 242 ML IV PRN (20:21)
[2020-01-06] MEDS ORDERED: NOREPINEPHRINE 4 MG/4 ML VIAL IV ONE (20:23)
[2020-01-06] MEDS ORDERED: VECURONIUM 10 MG VIAL IV ONE (20:27)
[2020-01-06] MEDS ORDERED: LACTATED RINGERS 1,000 ML IV ONE (20:42)
[2020-01-06 21:21] LABS: ABG Base Excess 3.9 MMOL/L (-2.5-2.5); ABG HCO3 28.3 MMOL/L (20-26); ABG Oxygen Saturation 98.8 % (95-100); ABG PCO2 41.8 MM HG (35-48); ABG PH 7.448 (7.35-7.45); ABG TCO2 29.6 MMOL/L (23-27)
[2020-01-06] MEDS: NORTRIPTYLINE 25 MG CAPSULE PO SCH (21:38)
[2020-01-06] MEDS: ROSUVASTATIN 20 MG TABLET PO SCH (21:38)
[2020-01-07] MEDS: LEVALBUTEROL 1.25 MG/3 ML NEB RESP TX SCH ×6 (03:02→23:45)
[2020-01-07] MEDS: IPRATROPIUM 500 MCG/2.5 ML NEB RESP TX SCH ×6 (03:02→23:45)
[2020-01-07] MEDS: PIPERACILLIN/TAZOBACTAM 3,375 MG in SODIUM CHLORIDE 0.9% 100 ML IV SCH ×3 (04:05→23:10)
[2020-01-07 04:44] LABS: Allen Test Positive; Pt O2 Delivery Device Ventilator
[2020-01-07 04:45] LABS: ABG Base Excess 4.9 MMOL/L (-2.5-2.5); ABG HCO3 28.9 MMOL/L (20-26); ABG Oxygen Saturation 99.9 % (95-100); ABG PCO2 38.1 MM HG (35-48); ABG PH 7.484 (7.35-7.45)
[2020-01-07 04:54] LABS: Basophils % 0.3 % (0.0-0.8); Eosinophils # 0.1 10*3/uL (0.0-0.87); Eosinophils % 0.6 % (0.00-10.9); Hematocrit 22.9 VOL% (35.7-47.0); Hemoglobin 7.2 GM/DL (12.0-16.0); Immature Granulocytes % 0.5 %; Immature Granulocytes Absolute 0.06 #; Lymphocytes # 1.6 10*3/uL (1.4-4.0); Lymphocytes % 13.5 % (21.3-54.2); Mean Corpuscular HGB Conc 31.4 GM/DL (32-36); Mean Corpuscular Volume 90.2 FL (87-102); Mean Platelet Volume 9.1 FL (9.6-12.0); Monocytes % 8.7 % (1.7-12.7); Neutrophils % 76.4 % (38.7-73.9); Platelet Count 344 T/CUMM (130-400); Red Blood Count 2.54 MC/CUMM (3.8-5.5); Red Cell Distribution Width 14.6 % (9.3-17.3); White Blood Count 11.5 T/CUMM (4-12)
[2020-01-07] MEDS: INSULIN LISPRO 100 UNIT/ML SUBCUT SCH ×4 (05:27→23:36)
[2020-01-07 05:37] LABS: Albumin 1.7 G/DL (3.4-5.0); Bilirubin,Direct 0.16 MG/DL (0.0-0.20); Bilirubin,Indirect 0.4 MG/DL (0.0-1.0); Bilirubin,Total 0.6 MG/DL (0.2-1.0); Total Protein 5.4 G/DL (6.4-8.3)
[2020-01-07] MEDS: CLOPIDOGREL 75 MG TABLET PO SCH (08:03)
[2020-01-07] MEDS: ASPIRIN CHEW 81 MG TABLET PO SCH (08:03)
[2020-01-07] MEDS: MULTIVITAMIN LIQUID (CENTRUM) 60 ML BOTTLE PO SCH (08:03)
[2020-01-07] MEDS: LOSARTAN 25 MG TABLET PO SCH (08:03)
[2020-01-07] MEDS: amLODIPine 10 MG TABLET PO SCH (08:03)
[2020-01-07] MEDS: PANTOPRAZOLE 40 MG VIAL IV SCH ×2 (08:03→20:54)
[2020-01-07] MEDS: METOPROLOL TARTRATE 50 MG TABLET NG SCH (08:03)
[2020-01-07] MEDS: POTASSIUM CHLORIDE RIDER 10 MEQ in PREMIX 1 EACH IV PRN (08:04)
[2020-01-07] MEDS ORDERED: SODIUM CHLORIDE 0.9% 1,000 ML IV PRN (10:41)
[2020-01-07 10:54] LABS: Total Protein (Chem) 5.5 G/DL (6.4-8.3)
[2020-01-07] MEDS: MIDAZOLAM 100 MG in SODIUM CHLORIDE 0.9% 80 ML IV PRN (12:12)
[2020-01-07 13:02] LABS: Albumin (SPE) 2.6 G/DL (3.2-5.3); Albumin (SPE) Rel % 47.1 %; Alpha 1 (SPE) 0.4 G/DL (0.1-0.4); Alpha 1 (SPE) Rel % 7.8 %; Alpha 2 (SPE) Rel % 17.5 %; Beta (SPE) 0.9 G/DL (0.5-1.1); Gamma (SPE) 0.6 G/DL (0.7-1.7); Gamma (SPE) Rel % 11.6 %
[2020-01-07 17:12] LABS: Hematocrit 25.5 VOL% (35.7-47.0)
[2020-01-07] MEDS: NORTRIPTYLINE 25 MG CAPSULE PO SCH (20:48)
[2020-01-07] MEDS: ROSUVASTATIN 20 MG TABLET PO SCH (20:48)
[2020-01-08] MEDS: LEVALBUTEROL 1.25 MG/3 ML NEB RESP TX SCH ×6 (03:14→23:05)
[2020-01-08] MEDS: IPRATROPIUM 500 MCG/2.5 ML NEB RESP TX SCH ×6 (03:14→23:05)
[2020-01-08] MEDS: MIDAZOLAM 100 MG in SODIUM CHLORIDE 0.9% 80 ML IV PRN ×2 (03:21→16:33)
[2020-01-08 04:24] LABS: ABG Base Excess 1.2 MMOL/L (-2.5-2.5); ABG HCO3 23.9 MMOL/L (20-26); ABG Oxygen Saturation 98.5 % (95-100); ABG PCO2 29.8 MM HG (35-48); ABG PH 7.522 (7.35-7.45); ABG PO2 177.1 MM HG (80-95); ABG TCO2 24.8 MMOL/L (23-27); Allen Test Positive; Pt O2 Delivery Device Ventilator
[2020-01-08 04:24] LABS: Basophils # 0.1 10*3/uL (0.0-0.2); Basophils % 0.5 % (0.0-0.8); Eosinophils # 0.4 10*3/uL (0.0-0.87); Hematocrit 24.2 VOL% (35.7-47.0); Hemoglobin 7.6 GM/DL (12.0-16.0); Immature Granulocytes % 0.5 %; Immature Granulocytes Absolute 0.05 #; Lymphocytes # 1.9 10*3/uL (1.4-4.0); Lymphocytes % 20.4 % (21.3-54.2); Mean Corpuscular HGB Conc 31.4 GM/DL (32-36); Mean Corpuscular Volume 87.4 FL (87-102); Mean Platelet Volume 8.6 FL (9.6-12.0); Monocytes % 8.4 % (1.7-12.7); Neutrophils % 66.2 % (38.7-73.9); Platelet Count 304 T/CUMM (130-400); Red Blood Count 2.77 MC/CUMM (3.8-5.5); Red Cell Distribution Width 16.9 % (9.3-17.3); White Blood Count 9.2 T/CUMM (4-12)
[2020-01-08 04:48] LABS: Calcium 9.7 MG/DL (8.5-10.1)
[2020-01-08] MEDS: INSULIN LISPRO 100 UNIT/ML SUBCUT SCH ×3 (05:04→18:03)
[2020-01-08] MEDS: PIPERACILLIN/TAZOBACTAM 3,375 MG in SODIUM CHLORIDE 0.9% 100 ML IV SCH ×3 (05:20→20:51)
[2020-01-08] MEDS: POTASSIUM CHLORIDE RIDER 20 MEQ in PREMIX 1 EACH IV PRN (07:43)
[2020-01-08] MEDS: CLOPIDOGREL 75 MG TABLET PO SCH (08:59)
[2020-01-08] MEDS: ASPIRIN CHEW 81 MG TABLET PO SCH (08:59)
[2020-01-08] MEDS: MULTIVITAMIN LIQUID (CENTRUM) 60 ML BOTTLE PO SCH (08:59)
[2020-01-08] MEDS: PANTOPRAZOLE 40 MG VIAL IV SCH ×2 (08:59→20:51)
[2020-01-08] MEDS: POTASSIUM CHLORIDE RIDER 10 MEQ in PREMIX 1 EACH IV PRN (09:28)
[2020-01-08] MEDS ORDERED: METOPROLOL TARTRATE 5 MG/5 ML VIAL IV ONE ×3 (11:43→11:53)
[2020-01-08] MEDS ORDERED: METOPROLOL TARTRATE 25 MG TABLET PO ONE (11:50)
[2020-01-08] MEDS ORDERED: ADENOSINE 6 MG/2 ML VIAL IV ONE ×2 (11:56→12:08)
[2020-01-08] MEDS ORDERED: SODIUM CHLORIDE 0.9% 500 ML IV ONE (12:08)
[2020-01-08] MEDS: DEXTROSE 5% 1,000 ML IV SCH (12:44)
[2020-01-08] MEDS: NORTRIPTYLINE 25 MG CAPSULE PO SCH (20:51)
[2020-01-08] MEDS: METOPROLOL TARTRATE 25 MG TABLET PO SCH (20:51)
[2020-01-08] MEDS: ROSUVASTATIN 20 MG TABLET PO SCH (20:51)
[2020-01-09] MEDS: INSULIN LISPRO 100 UNIT/ML SUBCUT SCH ×4 (00:30→18:54)
[2020-01-09] MEDS: DEXTROSE 5% 1,000 ML IV SCH ×2 (02:09→15:34)
[2020-01-09 03:19] LABS: ABG Base Excess 0.1 MMOL/L (-2.5-2.5); ABG HCO3 23.3 MMOL/L (20-26); ABG Oxygen Saturation 98.4 % (95-100); ABG PO2 161.2 MM HG (80-95); ABG TCO2 24.3 MMOL/L (23-27); Allen Test Positive; Pt O2 Delivery Device Ventilator
[2020-01-09] MEDS: IPRATROPIUM 500 MCG/2.5 ML NEB RESP TX SCH ×6 (03:49→23:15)
[2020-01-09] MEDS: LEVALBUTEROL 1.25 MG/3 ML NEB RESP TX SCH ×6 (03:49→23:15)
[2020-01-09] MEDS: PIPERACILLIN/TAZOBACTAM 3,375 MG in SODIUM CHLORIDE 0.9% 100 ML IV SCH ×3 (04:37→21:40)
[2020-01-09 04:57] LABS: Basophils # 0.1 10*3/uL (0.0-0.2); Basophils % 0.8 % (0.0-0.8); Eosinophils # 0.5 10*3/uL (0.0-0.87); Hematocrit 22.7 VOL% (35.7-47.0); Immature Granulocytes % 0.5 %; Immature Granulocytes Absolute 0.04 #; Lymphocytes % 22.2 % (21.3-54.2); Mean Corpuscular HGB Conc 30.8 GM/DL (32-36); Mean Corpuscular Volume 88.3 FL (87-102); Mean Platelet Volume 8.9 FL (9.6-12.0); Monocytes % 8.1 % (1.7-12.7); Neutrophils % 62.4 % (38.7-73.9); Platelet Count 297 T/CUMM (130-400); Red Blood Count 2.57 MC/CUMM (3.8-5.5); White Blood Count 8.8 T/CUMM (4-12)
[2020-01-09 05:28] LABS: Calcium 9.5 MG/DL (8.5-10.1); Osmolality,Calculated 297.3 MOS/KG (273-304)
[2020-01-09] MEDS: POTASSIUM CHLORIDE RIDER 20 MEQ in PREMIX 1 EACH IV PRN (05:59)
[2020-01-09] MEDS: MIDAZOLAM 100 MG in SODIUM CHLORIDE 0.9% 80 ML IV PRN (06:07)
[2020-01-09] MEDS ORDERED: FUROSEMIDE 40 MG/4 ML VIAL IV ONE (08:16)
[2020-01-09] MEDS ORDERED: SODIUM CHLORIDE 0.9% 1,000 ML IV PRN (08:46)
[2020-01-09] MEDS: METOPROLOL TARTRATE 25 MG TABLET PO SCH ×2 (10:03→21:50)
[2020-01-09] MEDS: CLOPIDOGREL 75 MG TABLET PO SCH (10:03)
[2020-01-09] MEDS: methylPREDNISolone SOD SUC 40 MG/1 ML VIAL IV SCH ×2 (10:03→16:57)
[2020-01-09] MEDS: ASPIRIN CHEW 81 MG TABLET PO SCH (10:03)
[2020-01-09] MEDS: PANTOPRAZOLE 40 MG VIAL IV SCH ×2 (10:06→21:40)
[2020-01-09] MEDS: MULTIVITAMIN LIQUID (CENTRUM) 60 ML BOTTLE PO SCH (10:09)
[2020-01-09 16:44] LABS: Hematocrit 29.4 VOL% (35.7-47.0); Hemoglobin 9.1 GM/DL (12.0-16.0)
[2020-01-09] MEDS: NORTRIPTYLINE 25 MG CAPSULE PO SCH (21:50)
[2020-01-09] MEDS: ROSUVASTATIN 20 MG TABLET PO SCH (21:50)
[2020-01-09 23:23] LABS: Hematocrit 27.7 VOL% (35.7-47.0); Hemoglobin 8.8 GM/DL (12.0-16.0)
[2020-01-10] MEDS: INSULIN LISPRO 100 UNIT/ML SUBCUT SCH ×4 (00:17→18:08)
[2020-01-10] MEDS: methylPREDNISolone SOD SUC 40 MG/1 ML VIAL IV SCH ×3 (01:29→18:02)
[2020-01-10 03:34] LABS: ABG Base Excess -0.4 MMOL/L (-2.5-2.5); ABG HCO3 24.1 MMOL/L (20-26); ABG Oxygen Saturation 99.1 % (95-100); ABG PCO2 35.9 MM HG (35-48); ABG PH 7.427 (7.35-7.45); ABG TCO2 21.8 MMOL/L (23-27)
[2020-01-10] MEDS: LEVALBUTEROL 1.25 MG/3 ML NEB RESP TX SCH ×6 (03:40→23:20)
[2020-01-10] MEDS: IPRATROPIUM 500 MCG/2.5 ML NEB RESP TX SCH ×6 (03:40→23:20)
[2020-01-10] MEDS: PIPERACILLIN/TAZOBACTAM 3,375 MG in SODIUM CHLORIDE 0.9% 100 ML IV SCH ×3 (04:49→20:20)
[2020-01-10 04:55] LABS: Basophils % 0.2 % (0.0-0.8); Hematocrit 26.9 VOL% (35.7-47.0); Hemoglobin 8.7 GM/DL (12.0-16.0); Immature Granulocytes % 1.3 %; Immature Granulocytes Absolute 0.11 #; Lymphocytes # 0.8 10*3/uL (1.4-4.0); Lymphocytes % 8.9 % (21.3-54.2); Mean Corpuscular HGB Conc 32.3 GM/DL (32-36); Mean Corpuscular Volume 85.9 FL (87-102); Monocytes % 2.1 % (1.7-12.7); Neutrophils % 87.5 % (38.7-73.9); Platelet Count 303 T/CUMM (130-400); Red Blood Count 3.13 MC/CUMM (3.8-5.5); Red Cell Distribution Width 15.9 % (9.3-17.3); White Blood Count 8.4 T/CUMM (4-12)
[2020-01-10 05:20] LABS: Calcium 9.3 MG/DL (8.5-10.1); Osmolality,Calculated 287.1 MOS/KG (273-304)
[2020-01-10] MEDS ORDERED: FUROSEMIDE 40 MG/4 ML VIAL ONE (05:35)
[2020-01-10] MEDS: DEXTROSE 5% 1,000 ML IV SCH ×3 (05:50→20:23)
[2020-01-10] MEDS: POTASSIUM CHLORIDE RIDER 20 MEQ in PREMIX 1 EACH IV PRN (05:50)
[2020-01-10] MEDS: MULTIVITAMIN LIQUID (CENTRUM) 60 ML BOTTLE PO SCH (08:38)
[2020-01-10] MEDS: ASPIRIN CHEW 81 MG TABLET PO SCH (08:38)
[2020-01-10] MEDS: PANTOPRAZOLE 40 MG VIAL IV SCH ×2 (08:38→20:16)
[2020-01-10] MEDS: METOPROLOL TARTRATE 25 MG TABLET PO SCH ×2 (08:38→20:16)
[2020-01-10] MEDS: CLOPIDOGREL 75 MG TABLET PO SCH (08:38)
[2020-01-10 09:46] LABS: ABG Base Excess -1.2 MMOL/L (-2.5-2.5); ABG HCO3 23.5 MMOL/L (20-26); ABG Oxygen Saturation 99.4 % (95-100); ABG PCO2 38.1 MM HG (35-48); ABG PH 7.397 (7.35-7.45); ABG TCO2 21.3 MMOL/L (23-27); Allen Test Positive; Pt O2 Delivery Device Ventilator
[2020-01-10 10:04] LABS: Hemoglobin 9.4 GM/DL (12.0-16.0)
[2020-01-10] MEDS: ROSUVASTATIN 20 MG TABLET PO SCH (20:16)
[2020-01-10] MEDS: NORTRIPTYLINE 25 MG CAPSULE PO SCH (20:16)
[2020-01-11] MEDS: INSULIN LISPRO 100 UNIT/ML SUBCUT SCH ×4 (00:26→18:00)
[2020-01-11] MEDS: methylPREDNISolone SOD SUC 40 MG/1 ML VIAL IV SCH ×4 (00:26→23:29)
[2020-01-11] MEDS: LEVALBUTEROL 1.25 MG/3 ML NEB RESP TX SCH ×6 (03:05→23:12)
[2020-01-11] MEDS: IPRATROPIUM 500 MCG/2.5 ML NEB RESP TX SCH ×6 (03:05→23:12)
[2020-01-11 05:13] LABS: Basophils % 0.1 % (0.0-0.8); Hematocrit 31.1 VOL% (35.7-47.0); Immature Granulocytes % 1.7 %; Lymphocytes # 0.7 10*3/uL (1.4-4.0); Lymphocytes % 5.4 % (21.3-54.2); Mean Corpuscular HGB Conc 32.2 GM/DL (32-36); Mean Corpuscular Volume 85.9 FL (87-102); Neutrophils % 90.8 % (38.7-73.9); Platelet Count 368 T/CUMM (130-400); Red Blood Count 3.62 MC/CUMM (3.8-5.5); Red Cell Distribution Width 15.7 % (9.3-17.3)
[2020-01-11 05:34] LABS: Alanine Aminotransferase 77 U/L (13-56); Albumin 1.9 G/DL (3.4-5.0); Alkaline Phosphatase 93 U/L (45-117); Aspartate Amino Transferase 32 U/L (0-37); Bilirubin,Indirect 0.3 MG/DL (0.0-1.0); Bilirubin,Total < 0.39 MG/DL (0.2-1.0); Blood Urea Nitrogen 15 MG/DL (7-18); Calcium 9.7 MG/DL (8.5-10.1); Estimated Glom Filtration Rate 67 ML/MIN; Glucose 190 MG/DL (74-106); Osmolality,Calculated 278.8 MOS/KG (273-304); Total Protein 5.9 G/DL (6.4-8.3)
[2020-01-11 07:52] LABS: Anisocytosis 1+; Lymphocytes 5 % (20-55); Platelet Estimate Normal; Segmented Neutrophils 94 % (50-85); Total Cells Counted 100
[2020-01-11] MEDS: POTASSIUM CHLORIDE RIDER 20 MEQ in PREMIX 1 EACH IV PRN (08:58)
[2020-01-11] MEDS: METOPROLOL TARTRATE 25 MG TABLET PO SCH ×2 (08:59→20:19)
[2020-01-11] MEDS: CLOPIDOGREL 75 MG TABLET PO SCH (08:59)
[2020-01-11] MEDS: MULTIVITAMIN LIQUID (CENTRUM) 60 ML BOTTLE PO SCH (08:59)
[2020-01-11] MEDS: ASPIRIN CHEW 81 MG TABLET PO SCH (08:59)
[2020-01-11] MEDS: PANTOPRAZOLE 40 MG VIAL IV SCH ×2 (09:00→20:19)
[2020-01-11] MEDS: DOCUSATE SODIUM 100 MG CAPSULE PO SCH (10:12)
[2020-01-11] MEDS: PIPERACILLIN/TAZOBACTAM 3,375 MG in SODIUM CHLORIDE 0.9% 100 ML IV SCH ×2 (10:12→18:11)
[2020-01-11 10:28] LABS: INR 1.1; PT Patient Result 11.6 SECS (9.8-11.9)
[2020-01-11] MEDS: DEXTROSE 5% 1,000 ML IV SCH (11:10)
[2020-01-11] MEDS: POTASSIUM CHLORIDE RIDER 10 MEQ in PREMIX 1 EACH IV PRN (12:02)
[2020-01-11] MEDS: NORTRIPTYLINE 25 MG CAPSULE PO SCH (20:19)
[2020-01-11] MEDS: ROSUVASTATIN 20 MG TABLET PO SCH (20:19)
[2020-01-11] MEDS ORDERED: cloNIDine 0.3 MG/24 HR PATCH TRANSDERM SCH (23:23)
[2020-01-11] MEDS: amLODIPine 10 MG TABLET PO SCH (23:29)
[2020-01-12] MEDS: INSULIN LISPRO 100 UNIT/ML SUBCUT SCH ×4 (00:44→18:35)
[2020-01-12] MEDS: PIPERACILLIN/TAZOBACTAM 3,375 MG in SODIUM CHLORIDE 0.9% 100 ML IV SCH ×3 (01:02→19:09)
[2020-01-12] MEDS: DEXTROSE 5% 1,000 ML IV SCH (01:02)
[2020-01-12] MEDS: LEVALBUTEROL 1.25 MG/3 ML NEB RESP TX SCH ×6 (03:07→23:40)
[2020-01-12] MEDS: IPRATROPIUM 500 MCG/2.5 ML NEB RESP TX SCH ×6 (03:07→23:40)
[2020-01-12 05:05] LABS: Basophils % 0.1 % (0.0-0.8); Hematocrit 33.8 VOL% (35.7-47.0); Hemoglobin 10.9 GM/DL (12.0-16.0); Immature Granulocytes % 1.8 %; Immature Granulocytes Absolute 0.29 #; Lymphocytes # 1.2 10*3/uL (1.4-4.0); Lymphocytes % 7.3 % (21.3-54.2); Mean Corpuscular HGB Conc 32.2 GM/DL (32-36); Mean Platelet Volume 8.8 FL (9.6-12.0); Monocytes % 3.4 % (1.7-12.7); NRBC # 0.02 10*3/uL; Neutrophils % 87.4 % (38.7-73.9); Platelet Count 407 T/CUMM (130-400); Red Blood Count 3.93 MC/CUMM (3.8-5.5); Red Cell Distribution Width 15.9 % (9.3-17.3); White Blood Count 15.8 T/CUMM (4-12)
[2020-01-12 05:59] LABS: Calcium 9.7 MG/DL (8.5-10.1); Osmolality,Calculated 283.4 MOS/KG (273-304)
[2020-01-12] MEDS: methylPREDNISolone SOD SUC 40 MG/1 ML VIAL IV SCH ×3 (08:52→21:55)
[2020-01-12] MEDS: ASPIRIN CHEW 81 MG TABLET PO SCH (08:52)
[2020-01-12] MEDS: METOPROLOL TARTRATE 25 MG TABLET PO SCH (08:53)
[2020-01-12] MEDS: CLOPIDOGREL 75 MG TABLET PO SCH (08:53)
[2020-01-12] MEDS: DOCUSATE SODIUM 100 MG CAPSULE PO SCH (08:53)
[2020-01-12] MEDS: PANTOPRAZOLE 40 MG VIAL IV SCH ×2 (08:53→21:55)
[2020-01-12] MEDS ORDERED: METOCLOPRAMIDE 10 MG/2 ML VIAL IV ONE (08:55)
[2020-01-12] MEDS: MULTIVITAMIN LIQUID (CENTRUM) 60 ML BOTTLE PO SCH (08:55)
[2020-01-12] MEDS: amLODIPine 10 MG TABLET PO SCH (08:56)
[2020-01-12] MEDS ORDERED: METOPROLOL TARTRATE 50 MG TABLET PO SCH (09:48)
[2020-01-12] MEDS: METOPROLOL TARTRATE 50 MG TABLET PO SCH ×2 (10:01→21:56)
[2020-01-12] MEDS: ROSUVASTATIN 20 MG TABLET PO SCH (21:55)
[2020-01-12] MEDS: NORTRIPTYLINE 25 MG CAPSULE PO SCH (21:56)
[2020-01-13] MEDS: DEXTROSE 5% 1,000 ML IV SCH ×2 (00:24→05:36)
[2020-01-13] MEDS: INSULIN LISPRO 100 UNIT/ML SUBCUT SCH ×4 (00:24→17:32)
[2020-01-13] MEDS: PIPERACILLIN/TAZOBACTAM 3,375 MG in SODIUM CHLORIDE 0.9% 100 ML IV SCH ×3 (01:59→17:51)
[2020-01-13] MEDS: LEVALBUTEROL 1.25 MG/3 ML NEB RESP TX SCH ×5 (02:55→19:08)
[2020-01-13] MEDS: IPRATROPIUM 500 MCG/2.5 ML NEB RESP TX SCH ×5 (02:55→19:08)
[2020-01-13 04:27] LABS: Basophils % 0.2 % (0.0-0.8); Hematocrit 32.2 VOL% (35.7-47.0); Hemoglobin 10.1 GM/DL (12.0-16.0); Immature Granulocytes % 1.5 %; Lymphocytes # 1.1 10*3/uL (1.4-4.0); Lymphocytes % 8.4 % (21.3-54.2); Mean Corpuscular HGB Conc 31.4 GM/DL (32-36); Mean Corpuscular Volume 85.9 FL (87-102); Monocytes % 2.3 % (1.7-12.7); Neutrophils % 87.6 % (38.7-73.9); Platelet Count 403 T/CUMM (130-400); Red Blood Count 3.75 MC/CUMM (3.8-5.5); Red Cell Distribution Width 16.1 % (9.3-17.3); White Blood Count 13.1 T/CUMM (4-12)
[2020-01-13 04:52] LABS: Calcium 9.9 MG/DL (8.5-10.1); Osmolality,Calculated 285.3 MOS/KG (273-304)
[2020-01-13] MEDS: DOCUSATE SODIUM 100 MG CAPSULE PO SCH (12:41)
[2020-01-13] MEDS: ASPIRIN CHEW 81 MG TABLET PO SCH (13:16)
[2020-01-13] MEDS: amLODIPine 10 MG TABLET PO SCH (13:16)
[2020-01-13] MEDS: PANTOPRAZOLE 40 MG VIAL IV SCH ×2 (13:16→20:06)
[2020-01-13] MEDS: CLOPIDOGREL 75 MG TABLET PO SCH (13:16)
[2020-01-13] MEDS: MULTIVITAMIN LIQUID (CENTRUM) 60 ML BOTTLE PO SCH (13:16)
[2020-01-13] MEDS: METOPROLOL TARTRATE 50 MG TABLET PO SCH ×2 (13:16→20:06)
[2020-01-13] MEDS: methylPREDNISolone SOD SUC 40 MG/1 ML VIAL IV SCH ×2 (13:17→22:43)
[2020-01-13] MEDS: NORTRIPTYLINE 25 MG CAPSULE PO SCH (20:06)
[2020-01-13] MEDS: ROSUVASTATIN 20 MG TABLET PO SCH (20:06)
[2020-01-14] MEDS: PIPERACILLIN/TAZOBACTAM 3,375 MG in SODIUM CHLORIDE 0.9% 100 ML IV SCH (00:31)
[2020-01-14] MEDS: INSULIN LISPRO 100 UNIT/ML SUBCUT SCH ×3 (00:32→13:26)
[2020-01-14] MEDS: LEVALBUTEROL 1.25 MG/3 ML NEB RESP TX SCH ×5 (00:38→14:24)
[2020-01-14] MEDS: IPRATROPIUM 500 MCG/2.5 ML NEB RESP TX SCH ×4 (00:38→11:00)
[2020-01-14 06:22] LABS: Basophils % 0.1 % (0.0-0.8); Hematocrit 32.2 VOL% (35.7-47.0); Hemoglobin 10.1 GM/DL (12.0-16.0); Immature Granulocytes % 1.6 %; Immature Granulocytes Absolute 0.22 #; Lymphocytes # 1.1 10*3/uL (1.4-4.0); Mean Corpuscular HGB Conc 31.4 GM/DL (32-36); Mean Corpuscular Volume 87.7 FL (87-102); Mean Platelet Volume 9.1 FL (9.6-12.0); Monocytes % 1.9 % (1.7-12.7); Neutrophils % 88.4 % (38.7-73.9); Platelet Count 392 T/CUMM (130-400); Red Blood Count 3.67 MC/CUMM (3.8-5.5); Red Cell Distribution Width 16.6 % (9.3-17.3)
[2020-01-14 06:45] LABS: Calcium 9.7 MG/DL (8.5-10.1); Osmolality,Calculated 288.3 MOS/KG (273-304)
[2020-01-14] MEDS: PANTOPRAZOLE 40 MG VIAL IV SCH (09:28)
[2020-01-14] MEDS: DEXTROSE 5% 1,000 ML IV SCH (09:29)
[2020-01-14] MEDS: METOPROLOL TARTRATE 50 MG TABLET PO SCH (09:31)
[2020-01-14] MEDS: DOCUSATE SODIUM 100 MG CAPSULE PO SCH (09:31)
[2020-01-14] MEDS: ASPIRIN CHEW 81 MG TABLET PO SCH (09:31)
[2020-01-14] MEDS: CLOPIDOGREL 75 MG TABLET PO SCH (09:31)
[2020-01-14] MEDS: amLODIPine 10 MG TABLET PO SCH (09:31)
[2020-01-14] MEDS: methylPREDNISolone SOD SUC 40 MG/1 ML VIAL IV SCH (09:32)
[2020-01-14] MEDS: MULTIVITAMIN LIQUID (CENTRUM) 60 ML BOTTLE PO SCH (09:32)
[2020-01-14 15:05] VITALS: BP 114/63
== END 2020-01-14 15:24 | DRG 377 ==
LOC: EDBD → EDUNIT# → N.ED 17:11 → SUATTDRO 22:39 → N.EDINP 22:39 → N.ICU 23:10 → N.4E 01-12 10:38
PROVIDERS: ADMIT Internal Medicine; ATTEND Internal Medicine